=== PATIENT | female | born 1995 | race Caucasian/White ===

== ENCOUNTER 2021-03-31 11:12 | Outpatient (REF) | payer BC, SELFPAY ==
[2021-03-31 13:57] LABS: HCG Quantitative 2244 mIU/mL
== END 2021-03-31 11:13 | disposition home or self-care (01) ==
LOC: HO.10HDL 11:12
PROVIDERS: Visit Provider Internal Medicine
DX: N91.2 Amenorrhea, unspecified (principal)
CPT/HCPCS: 36415; 84702

== ENCOUNTER → 2022-07-19 08:58 | Outpatient (BNVA) | payer OTHER, SELFPAY | PROVIDERS: PCP Internal Medicine; Visit Provider Advanced Practice Midwife | DX: O34.219 Maternal care for unspecified type scar from previous cesarean delivery (principal); Z32.01 Encounter for pregnancy test, result positive; Z3A.00 Weeks of gestation of pregnancy not specified | CPT/HCPCS: 81025 ==

== ENCOUNTER 2022-07-19 14:58 | Outpatient (REF) | payer OTHER, SELFPAY ==
--- NOTE | ~2022-07-19 | US_ITS ---
EXAMINATION: US OBSTETRICAL ULTRASOUND CLINICAL INFORMATION: Uncertain LMP COMPARISON: None. LMP: 05/01/2022. Gestational age by maternal dates is 11 weeks 2 days. Estimated date of delivery by maternal dates is 02/05/2022. TECHNIQUE: Transverse abdominal ultrasound was performed FINDINGS: There is a single intrauterine gestational sac with visible embryo/fetus and cardiac activity. There is no significant subchorionic hemorrhage or hematoma. HR: 163 beats per minute. CRL (crown rump length): 5.14 cm (11 weeks 6 days +/- 4 days). JANETH (estimated date of delivery): 02/01/2022 +/- 4 days. MATERNAL ADNEXA: The right maternal ovary measures 2.7 x 1.2 x 1.2 cm. The left maternal ovary measures 4.2 x 2.1 x 3.3 cm. There is no significant maternal adnexal mass. No maternal pelvic ascites. US/US OB <= 14 weeks fetus IMPRESSION: 1. Single intrauterine gestation with ultrasound gestational age of 11 weeks 6 days +/- 4 days. 2. Estimated date of delivery is 02/01/2022 +/- 4 days. 3. No maternal adnexal mass or pelvic ascites.
== END 2022-07-19 14:59 | disposition home or self-care (01) ==
LOC: HO.US 14:58
PROVIDERS: PCP Internal Medicine; Visit Provider Advanced Practice Midwife
DX: O34.219 Maternal care for unspecified type scar from previous cesarean delivery (principal); Z3A.11 11 weeks gestation of pregnancy
CPT/HCPCS: 76801